=== PATIENT | female | born 1950 | race Caucasian/White ===

== ENCOUNTER 2017-08-24 10:09 | Observation (INO) ==
--- NOTE | 2017-08-24 10:43 | Emergency Department Note ---
Disposition Clinical Impression: Confusion, Facial droop, Hypokalemia Disposition: Admitted As Inpatient Condition: Fair Time of Disposition: 15:35 Altered Mental Status HPI - General Chief Complaint: ED Altered Mental Status Stated Complaint: AMS Time Seen by Provider: 08/24/17 10:16 Source: patient, family Limitations: no limitations Nursing Notes Reviewed: Yes Vital Signs Reviewed: Yes - History of Present Illness HPI Narrative: 59-year-old female presents from home with daughter bedside for evaluation of altered mentation. Onset 2 days ago. Described by her daughter as jumbled text messaging in difficulty with fine motor skill. This is waxing and waning. Daughter notes that, previously, patient has taken her 's opioid prescribed medication by accident which has caused similar symptoms or transient however they never lasted this long. PMH: Hypertension, hyperlipidemia, GERD No history of arrhythmia, CVA, TIA, coagulopathy, CAD, ACS next ROS: Positive: As above Negative: Fever, chill, nausea, vomiting, chest pain, palpitation, cough, dyspnea, diaphoresis, abdominal pain, unilateral weakness/numbness/tingling, slurring of speech, falls, trauma. - Related Data Home Medications Medication Instructions Recorded Confirmed Aspirin 81 mg PO DAILY 03/07/16 08/24/17 Atenolol [Tenormin] 50 mg PO DAILY 03/07/16 08/24/17 Omeprazole [PriLOSEC] 20 mg PO DAILY 03/07/16 08/24/17 Amitriptyline [Elavil] 50 mg PO HS 08/24/17 08/24/17 Ascorbic Acid [Vitamin C] 1,000 mg PO DAILY 08/24/17 08/24/17 Cholecalciferol (Vitamin D3) 1,000 unit PO DAILY 08/24/17 08/24/17 [Vitamin D] Loratadine [Allergy Relief] 10 mg PO DAILY 08/24/17 08/24/17 Vit/Iron Fumarate/FA 1 tab PO DAILY 08/24/17 08/24/17 [ Tablet] Topiramate [Topiramate] 50 mg PO HS 08/24/17 08/24/17 Allergies Allergy/AdvReac Type Severity Reaction Status Date / Time No Known Allergies Allergy Verified 08/24/17 10:11 All systems ED: reviewed and negative except as stated. Review of Systems: As Per HPI Past Medical History - Past Medical History Medical history: Reports: hypertension Surgical history: Reports: appendectomy, cholecystectomy, hysterectomy Psychiatric history: Reports: no psych history - Social History Smoking Status: Never smoker Smokeless Tobacco Status: No Alcohol use: Reports: none Drug use: Reports: prescription drug abuse, other Physical Exam Vital Signs Reviewed General: Patient is alert, oriented, and in no acute distress. Head: atraumatic, normocephalic Eye: normal appearance, PERRL, EOMI, no scleral icterus, no conjunctival injection ENT: mucous membranes moist, normal external ear exam Neck: normal inspection, trachea midline, full ROM Chest: normal inspection, symmetric chest rise Respiratory: Good respiratory effort. Bilateral breath sounds are clear without wheezing, crackles, or rhonchi. Cardiovascular: Regular rate and rhythm. No clicks, rubs, gallops, or murmors. Normal heart sounds. Abdomen: Bowel sounds present normoactive x-4 quadrants. Abdomen is soft, nondistended, and nontender. No guarding or rebound. Musculoskeletal: Spontaneously moving all extremities. Skin: warm, dry, intact. Neuro: Alert and oriented x4. Strength 5/5 and equal bilaterally upper and lower extremities. Sensation light touch and equal bilaterally. No limb drift , no slurring of speech. Patient does have mild droop to the right corner of her mouth with no flattening of nasolabial folds. Negative finger to nose. Psych: Patient's affect is appropriate for situation. - General Limitations: no limitations General appearance: alert, in no apparent distress Course Course Narrative: Patient reevaluated several different occasions. She continues to be awake, alert, conversive, laughing at my jokes. No focal deficits. Urinalysis does show positive for opiates however, I am no clinical suspicion of patient is opioid intoxicated based on physical exam. This is very likely sequelae from several days ago. Patient is hypokalemic to 3.1. Will provide by mouth potassium. CT head is returned showing no acute intracranial hemorrhage; I provided aspirin [address] read. I discussed the patient with on-call neurology, Dr. Pinedo, who agrees to follow the patient with admission to hospitalist for continued evaluation of possible TIA. I discussed the patient with the admitting hospitalist, Dr. Black, recent set the patient with neurology following for continued workup and evaluation for possible TIA. EKG dated 08/24/17 at 10:29 interpreted as sinus rhythm with rate of 71. Baseline artifact. ME 184, QRS 102, QTC 411. Normal axis. Nonspecific ST-T changes. Compared to previous EKG dated tinging rate 2016 show no acute ischemic changes comparison. Chest X-Ray 08/24/17 10:40 IMPRESSION: No acute cardiopulmonary disease D/ / Linwood Talley MD / Linwood Talley MD Interpreting Provider: Linwood Talley MD Head CT 08/24/17 10:42 IMPRESSION: No acute intracranial abnormality. D/ / Adam Maynard MD / Adam Maynard MD Interpreting Provider: Adam Maynard MD Vital Signs Temperature 97.8 F 08/24/17 10:11 Pulse Rate 71 08/24/17 10:11 Respiratory Rate 20 08/24/17 10:11 Blood Pressure 122/75 08/24/17 10:11 O2 Sat by Pulse Oximetry 95 08/24/17 10:11 Temperature 97.8 F 08/24/17 10:29 Pulse Rate 65 08/24/17 14:00 Respiratory Rate 18 08/24/17 14:00 Blood Pressure 112/41 08/24/17 14:00 O2 Sat by Pulse Oximetry 100 08/24/17 14:00 Oxygen Delivery Oxygen Delivery Room Air Altered Mental Status - Lab Data Result diagrams: 08/24/17 11:17 08/24/17 11:17 Lab Results 08/24/17 08/24/17 08/24/17 Range/Units 11:17 11:17 11:17 WBC 8.8 (4.3-11.1) K/mcL RBC 3.19 L (3.82-4.97) M/mcL Hgb 9.8 L (11.5-15.4) g/dL Hct 28.7 L (35.3-44.9) % MCV 90.0 (83.0-100.0) fL MCH 30.7 (28.0-33.3) pg MCHC 34.1 (31.6-35.5) g/dL RDW 14.6 H (11.5-14.5) % Plt Count 217 (140-400) K/mcL MPV 11.0 (9.4-12.4) fL Immature Gran % 0.5 (0-4) % Seg Neutrophils % 78.2 % Lymphocytes % 10.4 % Monocytes % 9.1 % Eosinophils % 1.3 % Basophils % 0.5 % Neutrophils # 6.9 (1.6-8.9) K/mcL Lymphocytes # 0.9 (0.6-4.6) K/mcL Monocytes # 0.8 (0.0-1.3) K/mcL Eosinophils # 0.1 (0.0-0.6) K/mcL Basophils # 0.0 (0.0-0.2) K/mcL PT 10.5 (9.4-12.1) Seconds INR 0.9 Sodium 135 L (136-145) mEq/L Potassium 3.1 L (3.5-5.1) mEq/L Chloride 109 H (98-107) mEq/L Carbon Dioxide 14 L (23-29) mEq/L BUN 38 H (8-23) mg/dL Creatinine 1.20 (0.60-1.20) mg/dL Est GFR ( Amer) 54 L (> 60) Est GFR (Non-Af Amer) 45 L (> 60) BUN/Creatinine Ratio 32 H (6-26) Glucose 104 (70-105) mg/dL Calculated Osmolality 289 (280-300) Calcium 8.7 (8.6-10.3) mg/dL Magnesium 2.2 (1.6-2.6) mg/dL TSH 34.171 H (0.340-5.600) mcIU/mL Thyroxine (T4) 5.06 L (5.50-11.00) mcg/dL Total T3 0.56 L (0.87-1.78) ng/mL Urine Color (Yellow) Urine Clarity (Clear) Urine pH (5.0-8.0) pH Units Ur Specific [place] (1.010-1.025) Urine Protein (Neg-Trace) mg/dL Urine Glucose (UA) (Normal) mg/dL Urine Ketones (Negative) mg/dL Urine Blood (Negative) Urine Nitrite (Negative) Urine Bilirubin (Negative) Urine Urobilinogen (Normal) mg/dL Ur Leukocyte Esterase (Negative) Urine Microscopic RBC (0-3) per hpf Urine Microscopic WBC (0-3) per hpf Ur Squamous Epith Cells (None-Few) per lpf Urine Bacteria (None-Few) per hpf Hyaline Casts (None-Few) per lpf Ur Culture Indicated? (NO) Urine Opiates Screen (Kamrhj=894) ng/mL Ur Barbiturates Screen (Pdodjy=889) ng/mL Ur Phencyclidine Scrn (Cutoff=25) ng/mL Ur Amphetamines Screen (Oamzwn=1171) ng/mL U Benzodiazepines Scrn (Ourhmi=484) ng/mL Urine Cocaine Screen (Cutoff= 300) ng/mL U Marijuana (THC) Screen (Cutoff = 50) ng/mL Ur Drug Screen Interp 08/24/17 08/24/17 Range/Units 11:28 11:28 WBC (4.3-11.1) K/mcL RBC (3.82-4.97) M/mcL Hgb (11.5-15.4) g/dL Hct (35.3-44.9) % MCV (83.0-100.0) fL MCH (28.0-33.3) pg MCHC (31.6-35.5) g/dL RDW (11.5-14.5) % Plt Count (140-400) K/mcL MPV (9.4-12.4) fL Immature Gran % (0-4) % Seg Neutrophils % % Lymphocytes % % Monocytes % % Eosinophils % % Basophils % % Neutrophils # (1.6-8.9) K/mcL Lymphocytes # (0.6-4.6) K/mcL Monocytes # (0.0-1.3) K/mcL Eosinophils # (0.0-0.6) K/mcL Basophils # (0.0-0.2) K/mcL PT (9.4-12.1) Seconds INR Sodium (136-145) mEq/L Potassium (3.5-5.1) mEq/L Chloride (98-107) mEq/L Carbon Dioxide (23-29) mEq/L BUN (8-23) mg/dL Creatinine (0.60-1.20) mg/dL Est GFR ( Amer) (> 60) Est GFR (Non-Af Amer) (> 60) BUN/Creatinine Ratio (6-26) Glucose (70-105) mg/dL Calculated Osmolality (280-300) Calcium (8.6-10.3) mg/dL Magnesium (1.6-2.6) mg/dL TSH (0.340-5.600) mcIU/mL Thyroxine (T4) (5.50-11.00) mcg/dL Total T3 (0.87-1.78) ng/mL Urine Color Yellow (Yellow) Urine Clarity Clear (Clear) Urine pH 6.0 (5.0-8.0) pH Units Ur Specific [place] 1.022 (1.010-1.025) Urine Protein 100 H (Neg-Trace) mg/dL Urine Glucose (UA) Normal (Normal) mg/dL Urine Ketones 15 H (Negative) mg/dL Urine Blood Small H (Negative) Urine Nitrite Negative (Negative) Urine Bilirubin Small H (Negative) Urine Urobilinogen Normal (Normal) mg/dL Ur Leukocyte Esterase Moderate H (Negative) Urine Microscopic RBC 0-3 (0-3) per hpf Urine Microscopic WBC 15-30 H (0-3) per hpf Ur Squamous Epith Cells Many H (None-Few) per lpf Urine Bacteria None Seen (None-Few) per hpf Hyaline Casts None Seen (None-Few) per lpf Ur Culture Indicated? NO. A (NO) Urine Opiates Screen Positive H (Dtdrdz=088) ng/mL Ur Barbiturates Screen Negative (Rkkqtm=687) ng/mL Ur Phencyclidine Scrn Negative (Cutoff=25) ng/mL Ur Amphetamines Screen Negative (Bohpmy=9508) ng/mL U Benzodiazepines Scrn Negative (Wncthj=300) ng/mL Urine Cocaine Screen Negative (Cutoff= 300) ng/mL U Marijuana (THC) Screen Negative (Cutoff = 50) ng/mL Ur Drug Screen Interp See Below TPA Checklist - Eligibilty for IV tPA 1. LKW equal to or less than 4.5 hours be before treatment: No - LKW: 3-4.5 hrs Add. Warnings/Precautions Patient/family understanding: The patient/family members have been counseled and understood the risk, benefit , and alternatives of treatment. NIH Stroke Scale - Level of Consciousness LOC: Alert - LOC Questions LOC Questions: Answers both correctly - LOC Commands LOC Commands: Performs both correctly - Best Gaze Best Gaze: Normal - Visual Visual: No visual loss - Facial Palsy Facial Palsy: Minor asymmetry on smiling, flattened nasolabial fold - Motor Arms Motor Arm-Left: No drift for 10 seconds Motor Arm-Right: No drift for 10 seconds - Motor Legs Motor Leg-Left: No drift for 5 seconds Motor Leg-Right: No drift for 5 seconds - Limb Ataxia Limb Ataxia: Absent of affected limb too weak to perform exam - Sensory Sensory: Normal - Best Language Best Language: No aphasia - Dysarthria Dysarthria: Normal - Extinction and Inattention Extinction and Inattention: Normal - NIHSS Total Score NIHSS Total Score: 1
--- NOTE | 2017-08-24 11:30 | Emergency Department Note ---
Disposition Clinical Impression: Confusion, Facial droop, Hypokalemia Disposition: Admitted As Inpatient Condition: Fair General Adult HPI - General Chief complaint: ED Altered Mental Status Stated complaint: AMS Time Seen by Provider: 08/24/17 10:16 Source: patient, family Limitations: no limitations - History of Present Illness Pain Scale: 10 - Related Data Home Medications Medication Instructions Recorded Confirmed Aspirin 81 mg PO DAILY 03/07/16 08/24/17 Atenolol [Tenormin] 50 mg PO DAILY 03/07/16 08/24/17 Omeprazole [PriLOSEC] 20 mg PO DAILY 03/07/16 08/24/17 Amitriptyline [Elavil] 50 mg PO HS 08/24/17 08/24/17 Ascorbic Acid [Vitamin C] 1,000 mg PO DAILY 08/24/17 08/24/17 Cholecalciferol (Vitamin D3) 1,000 unit PO DAILY 08/24/17 08/24/17 [Vitamin D] Loratadine [Allergy Relief] 10 mg PO DAILY 08/24/17 08/24/17 Vit/Iron Fumarate/FA 1 tab PO DAILY 08/24/17 08/24/17 [ Tablet] Topiramate [Topiramate] 50 mg PO HS 08/24/17 08/24/17 Allergies Allergy/AdvReac Type Severity Reaction Status Date / Time No Known Allergies Allergy Verified 08/24/17 10:11 Past Medical History - Past Medical History Medical history: Reports: hypertension Surgical history: Reports: appendectomy, cholecystectomy, hysterectomy Psychiatric history: Reports: no psych history - Social History Smoking Status: Never smoker Smokeless Tobacco Status: No Alcohol use: Reports: none Drug use: Reports: prescription drug abuse, other Physical Exam - General Limitations: no limitations General appearance: alert, in no apparent distress Course Vital Signs Temperature 97.8 F 08/24/17 10:11 Pulse Rate 71 08/24/17 10:11 Respiratory Rate 20 08/24/17 10:11 Blood Pressure 122/75 08/24/17 10:11 O2 Sat by Pulse Oximetry 95 08/24/17 10:11 Temperature 97.8 F 08/24/17 10:29 Pulse Rate 65 08/24/17 14:00 Respiratory Rate 20 08/24/17 15:34 Blood Pressure 91/37 08/24/17 15:34 O2 Sat by Pulse Oximetry 100 08/24/17 14:00 Oxygen Delivery Oxygen Delivery Room Air Medical Decision Making - Lab Data Result diagrams: 08/24/17 11:17 08/24/17 11:17 Lab Results 08/24/17 08/24/17 08/24/17 Range/Units 11:17 11:17 11:17 WBC 8.8 (4.3-11.1) K/mcL RBC 3.19 L (3.82-4.97) M/mcL Hgb 9.8 L (11.5-15.4) g/dL Hct 28.7 L (35.3-44.9) % MCV 90.0 (83.0-100.0) fL MCH 30.7 (28.0-33.3) pg MCHC 34.1 (31.6-35.5) g/dL RDW 14.6 H (11.5-14.5) % Plt Count 217 (140-400) K/mcL MPV 11.0 (9.4-12.4) fL Immature Gran % 0.5 (0-4) % Seg Neutrophils % 78.2 % Lymphocytes % 10.4 % Monocytes % 9.1 % Eosinophils % 1.3 % Basophils % 0.5 % Neutrophils # 6.9 (1.6-8.9) K/mcL Lymphocytes # 0.9 (0.6-4.6) K/mcL Monocytes # 0.8 (0.0-1.3) K/mcL Eosinophils # 0.1 (0.0-0.6) K/mcL Basophils # 0.0 (0.0-0.2) K/mcL PT 10.5 (9.4-12.1) Seconds INR 0.9 Sodium 135 L (136-145) mEq/L Potassium 3.1 L (3.5-5.1) mEq/L Chloride 109 H (98-107) mEq/L Carbon Dioxide 14 L (23-29) mEq/L BUN 38 H (8-23) mg/dL Creatinine 1.20 (0.60-1.20) mg/dL Est GFR ( Amer) 54 L (> 60) Est GFR (Non-Af Amer) 45 L (> 60) BUN/Creatinine Ratio 32 H (6-26) Glucose 104 (70-105) mg/dL Calculated Osmolality 289 (280-300) Calcium 8.7 (8.6-10.3) mg/dL Magnesium 2.2 (1.6-2.6) mg/dL TSH 34.171 H (0.340-5.600) mcIU/mL Thyroxine (T4) 5.06 L (5.50-11.00) mcg/dL Total T3 0.56 L (0.87-1.78) ng/mL Urine Color (Yellow) Urine Clarity (Clear) Urine pH (5.0-8.0) pH Units Ur Specific [place] (1.010-1.025) Urine Protein (Neg-Trace) mg/dL Urine Glucose (UA) (Normal) mg/dL Urine Ketones (Negative) mg/dL Urine Blood (Negative) Urine Nitrite (Negative) Urine Bilirubin (Negative) Urine Urobilinogen (Normal) mg/dL Ur Leukocyte Esterase (Negative) Urine Microscopic RBC (0-3) per hpf Urine Microscopic WBC (0-3) per hpf Ur Squamous Epith Cells (None-Few) per lpf Urine Bacteria (None-Few) per hpf Hyaline Casts (None-Few) per lpf Ur Culture Indicated? (NO) Urine Opiates Screen (Plnlzy=339) ng/mL Ur Barbiturates Screen (Fhdtsx=053) ng/mL Ur Phencyclidine Scrn (Cutoff=25) ng/mL Ur Amphetamines Screen (Oobpen=0819) ng/mL U Benzodiazepines Scrn (Enibnf=383) ng/mL Urine Cocaine Screen (Cutoff= 300) ng/mL U Marijuana (THC) Screen (Cutoff = 50) ng/mL Ur Drug Screen Interp 08/24/17 08/24/17 Range/Units 11:28 11:28 WBC (4.3-11.1) K/mcL RBC (3.82-4.97) M/mcL Hgb (11.5-15.4) g/dL Hct (35.3-44.9) % MCV (83.0-100.0) fL MCH (28.0-33.3) pg MCHC (31.6-35.5) g/dL RDW (11.5-14.5) % Plt Count (140-400) K/mcL MPV (9.4-12.4) fL Immature Gran % (0-4) % Seg Neutrophils % % Lymphocytes % % Monocytes % % Eosinophils % % Basophils % % Neutrophils # (1.6-8.9) K/mcL Lymphocytes # (0.6-4.6) K/mcL Monocytes # (0.0-1.3) K/mcL Eosinophils # (0.0-0.6) K/mcL Basophils # (0.0-0.2) K/mcL PT (9.4-12.1) Seconds INR Sodium (136-145) mEq/L Potassium (3.5-5.1) mEq/L Chloride (98-107) mEq/L Carbon Dioxide (23-29) mEq/L BUN (8-23) mg/dL Creatinine (0.60-1.20) mg/dL Est GFR ( Amer) (> 60) Est GFR (Non-Af Amer) (> 60) BUN/Creatinine Ratio (6-26) Glucose (70-105) mg/dL Calculated Osmolality (280-300) Calcium (8.6-10.3) mg/dL Magnesium (1.6-2.6) mg/dL TSH (0.340-5.600) mcIU/mL Thyroxine (T4) (5.50-11.00) mcg/dL Total T3 (0.87-1.78) ng/mL Urine Color Yellow (Yellow) Urine Clarity Clear (Clear) Urine pH 6.0 (5.0-8.0) pH Units Ur Specific [place] 1.022 (1.010-1.025) Urine Protein 100 H (Neg-Trace) mg/dL Urine Glucose (UA) Normal (Normal) mg/dL Urine Ketones 15 H (Negative) mg/dL Urine Blood Small H (Negative) Urine Nitrite Negative (Negative) Urine Bilirubin Small H (Negative) Urine Urobilinogen Normal (Normal) mg/dL Ur Leukocyte Esterase Moderate H (Negative) Urine Microscopic RBC 0-3 (0-3) per hpf Urine Microscopic WBC 15-30 H (0-3) per hpf Ur Squamous Epith Cells Many H (None-Few) per lpf Urine Bacteria None Seen (None-Few) per hpf Hyaline Casts None Seen (None-Few) per lpf Ur Culture Indicated? NO. A (NO) Urine Opiates Screen Positive H (Fhzuzd=147) ng/mL Ur Barbiturates Screen Negative (Xkicvd=565) ng/mL Ur Phencyclidine Scrn Negative (Cutoff=25) ng/mL Ur Amphetamines Screen Negative (Tuzbwg=1843) ng/mL U Benzodiazepines Scrn Negative (Vzetym=007) ng/mL Urine Cocaine Screen Negative (Cutoff= 300) ng/mL U Marijuana (THC) Screen Negative (Cutoff = 50) ng/mL Ur Drug Screen Interp See Below Attestation Statement - Attestation Attestation: I examined this patient and my medical decision-making was reviewed with the [employer] PERSON/PA/Advanced Practice Nurse/Resident Physician. I agree with the documented findings, disposition and treatment plan as described except to the extent set forth below. The patient has confusion. Last several days, the daughter feels that her speech is thick, the patient has only been confused in the past and she has incorrectly taking medication and the daughter does keep these under close supervision but still feels that this is possible so the patient is being evaluated further with lab testing, head CT as well as urine toxicology testing to make sure she has not taking her 's medication, urine testing will also be done. Patient does know the day, month and year and name of the hospital but daughter feels that she is slower to respond than usual at this time however symptoms have improved over the last 24 hours. Concern for TIA versus inappropriate medication administration as well as concern for possible left foot abnormality or urinary tract infection. Results pending. [id number]
[2017-08-24 11:38] LABS: Bilirubin,Urine Small (Negative); Blood,Urine Small (Negative); Clarity,Urine Clear (Clear); Color,Urine Yellow (Yellow); Glucose,Urine (UA) Normal (Normal); Ketones,Urine 15 mg/dL (Negative); Leukocyte Esterase,Urine Moderate (Negative); Nitrite,Urine Negative (Negative); Protein,Urine 100 mg/dL (Neg-Trace); Specific Gravity,Urine 1.022 (1.010-1.025); Urobilinogen,Urine Normal (Normal)
[2017-08-24 11:40] LABS: Bacteria,Urine None Seen per hpf (None-Few); Hyaline Casts,Urine None Seen per lpf (None-Few); RBC,Urine 0-3 per hpf (0-3); Squamous Epithelial Cell,Urine Many per lpf (None-Few); WBC,Urine 15-30 per hpf (0-3)
[2017-08-24 11:47] LABS: Amphetamine Screen,Urine Negative ng/mL (Cutoff=1000); Barbiturate Screen,Urine Negative ng/mL (Cutoff=200); Benzodiazepines Screen,Urine Negative ng/mL (Cutoff=200); Cannabinoid Screen,Urine Negative ng/mL (Cutoff = 50); Cocaine Screen,Urine Negative ng/mL (Cutoff= 300); Opiate Screen,Urine Positive ng/mL (Cutoff=300); Phencyclidine Screen,Urine Negative ng/mL (Cutoff=25)
[2017-08-24 12:08] LABS: Calcium 8.7 mg/dL (8.6-10.3); Potassium 3.1 mEq/L (3.5-5.1)
[2017-08-24] MEDS ORDERED: Aspirin 81 MG TAB.CHEW PO ONE (12:38)
[2017-08-24 13:22] LABS: Hematocrit 28.7 % (35.3-44.9); Hemoglobin 9.8 g/dL (11.5-15.4); Immature Granulocytes % 0.5 % (0-4); Lymphocytes % 10.4 %; Mean Corpuscular HGB Conc 34.1 g/dL (31.6-35.5); Mean Corpuscular Hemoglobin 30.7 pg (28.0-33.3); Platelet Count 217 K/mcL (140-400); Red Blood Count 3.19 M/mcL (3.82-4.97); Red Cell Distribution Width 14.6 % (11.5-14.5); Segmented Neutrophils % 78.2 %
[2017-08-24 13:23] LABS: Basophils % 0.5 %; Eosinophils # 0.1 K/mcL (0.0-0.6); Eosinophils % 1.3 %; Lymphocytes # 0.9 K/mcL (0.6-4.6); Monocytes # 0.8 K/mcL (0.0-1.3); Monocytes % 9.1 %; Neutrophils # 6.9 K/mcL (1.6-8.9)
--- NOTE | 2017-08-24 13:26 | Event Note ---
Date of Encounter: 08/24/17 Time of Encounter: 13:25 Patient was seen and examined. I agree with the H&P as written by Parul Su NP. Briefly, patient is a 59-year-old female with history of hypertension, hypotension, hypothyroidism who presented with 2 days worth of confusion and lethargy. There was a report of that also some fine motor function. The patient has no focal deficits on my examination. CT head was negative in the ED. The patient apparently has taken a dose of her 's oral morphine accidently. Her urine drug screen was positive for opiates. Family confirms that this was done by mistake. Labs showed mild BENJI and hypokalmia of 3.1. GEN: NAD, alert oriented 3 CVS: RRR. S1, S2, No m/r/g RESP: CTAB ABD: Soft, NT, ND, +BS EXT: No edema. 2+ DP. No rashes NEURO: Nonfocal Admit to hospitalist for transient confusion Effusions possibly metabolic versus medications We will rule out a CVA but unlikely. Check MRI brain and carotids ultrasound. IV fluids for mild BENJI Replete potassium Check TSH. Patient had a thyroid ablation back in February 2017 No need for neurology consult for now. Resume home meds. DVT prophylaxis
[2017-08-24 13:35] LABS: INR 0.9; Prothrombin Time 10.5 Seconds (9.4-12.1)
[2017-08-24] MEDS ORDERED: Naloxone 0.4 MG/ML INJ IVP PRN (13:35)
[2017-08-24 13:36] LABS: Magnesium 2.2 mg/dL (1.6-2.6)
[2017-08-24 13:44] LABS: Thyroid Stimulating Hormone 34.171 mcIU/mL (0.340-5.600)
[2017-08-24] MEDS: 0.9 % Sodium Chloride 1,000 ML IVC SCH ×2 (13:56→21:13)
--- NOTE | 2017-08-24 14:04 | Internal Med History&Physical ---
Date of Encounter: 08/24/17 Time of Encounter: 13:51 Internal Medicine - H&P: HPI Chief complaint: Confusion and lethargy Admitted From: Home Plans for Post Hospital Care: Home History of present illness: Ms. Dickens is a 67 year old female with history of HTN, HLD, and thyroid issues in past. Urine was + for opiates. The patient indicated that she has taken her husbands morphine 30 mg in the past on accident and wonders if this is the cause of her confusion and lethargy for the past 2 days. The patient is alert and oriented. No focal deficits noted during exam. The patient falls asleep while asking her questions, but awakens with appropriate answers. The family did ask for a social service consult regarding finding a pharmacy service that offers blister packs, to help the patient avoid confusion with medication administration with her , who she cares for. Ct of the head showed no acute abnormality. Will get MRI of head/brain, carotid US, ECHO with bubble study, NIHSS, neuro checks, and continue ASA daily. The patient's k was 3.1, will replace with oral supplementation. Na is 135, will continue IVF's. The patient TSH was elevated., will get T3, and T4. The patient had a thyroid ablation in 12/[address] Mejia. Past Med Surg Social Fam HX - Past Medical History Medical history: hypertension Additional medical history: hyperthyroidism Psychiatric history: no psych history - Past Surgical History Surgical History: appendectomy, cholecystectomy, hysterectomy Additional surgical history: back surgery and gastric bypass - Social History Smoking Status: Never smoker Smokeless Tobacco Status: No Alcohol use: none Drug use: prescription drug abuse, other - Family History Mother Living Status: Father Living Status: Internal Medicine - H&P: Meds Aspirin 81 mg PO DAILY 03/07/16 [History] Atenolol [Tenormin] 50 mg PO DAILY 03/07/16 [History] Omeprazole [PriLOSEC] 20 mg PO DAILY 03/07/16 [History] Amitriptyline [Elavil] 50 mg PO HS 08/24/17 [History] Ascorbic Acid [Vitamin C] 1,000 mg PO DAILY 08/24/17 [History] Cholecalciferol (Vitamin D3) [Vitamin D] 1,000 unit PO DAILY 08/24/17 [History] Loratadine [Allergy Relief] 10 mg PO DAILY 08/24/17 [History] Vit/Iron Fumarate/FA [ Tablet] 1 tab PO DAILY 08/24/17 [History ] Topiramate [Topiramate] 50 mg PO HS 08/24/17 [History] 3 Allergy/AdvReac Type Severity Reaction Status Date / Time No Known Allergies Allergy Verified 08/24/17 10:11 All Systems PM: A 10-system review of systems was performed and is negative for pertinent findings except as documented above in the HPI. - Constitutional Constitutional: no chills, no fever(s), no night sweats - EENT Eyes: no change in vision, no discharge, no pain, no photophobia Ears: no ear discharge, no ear pain, no tinnitus Nose, mouth and throat: no dysphagia, no nasal discharge, no neck pain, no sore throat - Cardiovascular Cardiovascular ROS IM: no chest pain, no diaphoresis, no dyspnea, no lightheadedness, no palpitations, no syncope - Respiratory Respiratory: no cough, no dyspnea, no wheezing, no excessive phlegm production - Gastrointestinal Gastrointestinal: no abdominal pain, no diarrhea, no hematemesis, no hematochezia, no melena, no nausea, no vomiting - Genitourinary Genitourinary: no change in urinary stream, no dysuria, no flank pain, no hematuria - Musculoskeletal Musculoskeletal ROS IM: no numbness, no tingling - Integumentary Integumentary IM: no rash, no unusual bruising - Neurological Neurological ROS: no confusion, no convulsions, no focal weakness, no numbness, no tingling, no tremor(s) - Hematologic/Lymphatic Hematologic/Lymphatic: no easy bruising - Constitutional Vitals: Temp Pulse Resp BP Pulse Ox 97.8 F 69 18 106/59 96 08/24/17 10:29 08/24/17 10:45 08/24/17 10:45 08/24/17 10:45 08/24/17 10:45 General appearance: Present: A&O X 3, answers questions appropriately - Head Head exam: Present: atraumatic, normocephalic - Eye Eye exam: Present: PERRL, conjuntiva pink, sclera anicteric Pupils: Present: PERRL - Neck Neck exam general surgery: Present: supple, trachea midline. Absent: lymphadenopathy - Respiratory Respiratory exam: Present: CTAB. Absent: accessory muscle use, rales, rhonchi, wheezes - Cardiovascular Cardiovascular exam: Present: RRR, +S1, +S2. Absent: diastolic murmur, gallop, rubs, systolic murmur - GI/Abdominal GI/Abdominal exam: Present: normal bowel sounds, soft, tenderness (with palpation, to left hip/left groin area), no peritoneal signs. Absent: distended - Extremities Exam Extremities exam: Present: warm, radial pulses palpable and symmetrical. Absent : calf tenderness, cyanotic, pedal edema - Neurological Exam Neurological exam: Present: CN II-XII intact, oriented X3, no focal deficits. Absent: pronater drift, facial droop, speech deficit - Skin Skin exam: Present: dry, intact Internal Med - H&P Results - Labs CBC & Chem 7: 08/24/17 11:17 08/24/17 11:17 Labs: Short CBC 08/24/17 Range/Units 11:17 WBC 8.8 (4.3-11.1) K/mcL Hgb 9.8 L (11.5-15.4) g/dL Hct 28.7 L (35.3-44.9) % Plt Count 217 (140-400) K/mcL Neutrophils # 6.9 (1.6-8.9) K/mcL BMP 08/24/17 11:17 Sodium 135 L Potassium 3.1 L Chloride 109 H Carbon Dioxide 14 L BUN 38 H Creatinine 1.20 Glucose 104 Calcium 8.7 Urine 08/24/17 Range/Units 11:28 Urine Color Yellow (Yellow) Urine Clarity Clear (Clear) Urine pH 6.0 (5.0-8.0) pH Units Ur Specific [place] 1.022 (1.010-1.025) Urine Protein 100 H (Neg-Trace) mg/dL Urine Glucose (UA) Normal (Normal) mg/dL - Impressions ITS Impressions Chest X-Ray 08/24/17 10:40 IMPRESSION: No acute cardiopulmonary disease D/ / Linwood Talley MD / Linwood Talley MD Interpreting Provider: Linwood Talley MD Head CT 08/24/17 10:42 IMPRESSION: No acute intracranial abnormality. D/ / Adam Maynard MD / Adam Maynard MD Interpreting Provider: Adam Maynard MD - Assessment and plan (1) Altered mental status Current Visit: Yes Status: Acute Assessment and plan: Patient thinks she may have inadvertently taken her husbands morhphine 30 mg tablets, in the past day or 2, this could be the cause of her confusion. Will work up patient for stroke. NIHSS Neuro checks qshift Ct of head negative for acute abnormality, will get MRI head/brain Caroitid US Echo cardiogram with bubble study Monitor daily labs Cardiac monitoring Qualifiers: Altered mental status type: unspecified Qualified Code(s): R41.82 - Altered mental status, unspecified (2) Hypokalemia Current Visit: Yes Status: Acute Assessment and plan: Likely due to dehydration, will replace with potassium chloride 40 meq X1 Check serum k in am. Cardiac monitoring (3) Dehydration Current Visit: Yes Status: Acute Assessment and plan: Monitor daily labs Continue IVF's (4) Hyponatremia Current Visit: Yes Status: Acute (5) Elevated TSH Current Visit: Yes Status: Acute Assessment and plan: Patient TSH is 34.171 today. She was found to have thyroid nodules which represented goiters, late last year. In 12/2016 she underwent a thyroid ablation. T3 and T4 ordered at this time. The highest TSH documented in the past was 0.741 (6) HTN (hypertension) Current Visit: Yes Status: Acute Assessment and plan: Bp is controlled Continue home medications-Atenolol Qualifiers: Hypertension type: essential hypertension Qualified Code(s): I10 - Essential (primary) hypertension - Time Spent With Patient Total time spent is greater than 50% in coordination of care (as documented) at patient's floor/unit and/or counseling patient:
[2017-08-24 14:48] LABS: Triiodothyronine (T3) Total 0.56 ng/mL (0.87-1.78)
[2017-08-24] MEDS ORDERED: Acetaminophen 325 MG TABLET PO PRN (16:39)
[2017-08-24] MEDS ORDERED: *HR* HYDROcodone/Acet 5/325 mg TABLET PO PRN (16:41)
[2017-08-24] MEDS ORDERED: Topiramate 25 MG TABLET PO SCH (21:00)
[2017-08-24] MEDS: *HR* Heparin 5,000 UNIT/ML VIAL SQ SCH (21:13)
[2017-08-25 01:48] LABS: Basophils % 0.5 %; Eosinophils # 0.1 K/mcL (0.0-0.6); Hematocrit 26.6 % (35.3-44.9); Hemoglobin 8.9 g/dL (11.5-15.4); Immature Granulocytes % 0.3 % (0-4); Lymphocytes # 1.2 K/mcL (0.6-4.6); Lymphocytes % 19.3 %; Mean Corpuscular HGB Conc 33.5 g/dL (31.6-35.5); Mean Corpuscular Hemoglobin 30.4 pg (28.0-33.3); Mean Corpuscular Volume 90.8 fL (83.0-100.0); Mean Platelet Volume 10.5 fL (9.4-12.4); Monocytes # 0.6 K/mcL (0.0-1.3); Monocytes % 10.3 %; Neutrophils # 4.1 K/mcL (1.6-8.9); Platelet Count 183 K/mcL (140-400); Red Blood Count 2.93 M/mcL (3.82-4.97); Red Cell Distribution Width 15.1 % (11.5-14.5); Segmented Neutrophils % 67.6 %
[2017-08-25 02:06] LABS: BUN/Creatinine Ratio 33 (6-26); Blood Urea Nitrogen 29 mg/dL (8-23); Carbon Dioxide 11 mEq/L (23-29); Chloride 116 mEq/L (98-107); Chol/HDL Ratio 2.8 (0-4.9); Cholesterol 118 mg/dL (< 200); Glucose 72 mg/dL (70-105); HDL Cholesterol 42 mg/dL (40-59); LDL Cholesterol,Calculated 48 mg/dL (0-99); Osmolality,Calculated 292 (280-300); Potassium 3.1 mEq/L (3.5-5.1); Sodium 139 mEq/L (136-145); Triglycerides 139 mg/dL (< 150); eGFR For African Americans > 60 (> 60); eGFR For Non-African Americans > 60 (> 60)
[2017-08-25] MEDS: *HR* Heparin 5,000 UNIT/ML VIAL SQ SCH (05:58)
[2017-08-25] MEDS ORDERED: Aspirin 81 MG TAB.CHEW PO SCH (09:00)
[2017-08-25] MEDS ORDERED: Prenatal Vit/FA 1 EACH TABLET PO SCH (09:00)
[2017-08-25] MEDS ORDERED: Ascorbic Acid 500 MG TABLET PO SCH (09:00)
[2017-08-25] MEDS ORDERED: Loratadine 10 MG TABLET PO SCH (09:00)
[2017-08-25] MEDS ORDERED: Cholecalciferol (D-3) 1,000 UNIT TABLET PO SCH (09:00)
[2017-08-25] MEDS ORDERED: Aspirin 325 MG TABLET PO SCH (09:00)
--- NOTE | 2017-08-25 10:04 | Internal Med Progress Note ---
Date of Encounter: 08/25/17 - Assessment and plan (1) Hypothyroid Current Visit: Yes Status: Acute (2) Accidental drug ingestion Current Visit: Yes Status: Acute (3) Altered mental status Current Visit: Yes Status: Acute Qualifiers: Altered mental status type: unspecified Qualified Code(s): R41.82 - Altered mental status, unspecified (4) Confusion Current Visit: Yes Status: Acute (5) Elevated TSH Current Visit: Yes Status: Acute (6) H/O thyroid nodule Current Visit: Yes Status: Acute (7) HTN (hypertension) Current Visit: Yes Status: Acute Qualifiers: Hypertension type: essential hypertension Qualified Code(s): I10 - Essential (primary) hypertension (8) Hypokalemia Current Visit: Yes Status: Acute (9) Hyponatremia Current Visit: Yes Status: Acute - Time Spent With Patient Total time spent is greater than 50% in coordination of care (as documented) at patient's floor/unit and/or counseling patient: - Constitutional Vitals: Temp Pulse Resp BP Pulse Ox 97.9 F 70 20 91/57 100 08/25/17 06:49 08/25/17 06:49 08/25/17 06:49 08/25/17 06:49 08/25/17 06:49 General appearance: Present: A&O X 3, answers questions appropriately Internal Medicine: Result - Labs CBC & Chem 7: 08/25/17 01:15 08/25/17 01:15 Labs: Short CBC 08/25/17 Range/Units 01:15 WBC 6.1 (4.3-11.1) K/mcL Hgb 8.9 L (11.5-15.4) g/dL Hct 26.6 L (35.3-44.9) % Plt Count 183 (140-400) K/mcL Neutrophils # 4.1 (1.6-8.9) K/mcL BMP 08/25/17 01:15 Sodium 139 Potassium 3.1 L Chloride 116 H Carbon Dioxide 11 L BUN 29 H Creatinine 0.89 Glucose 72 Calcium 8.0 L - ABG Interpretation ABG results: PT/INR, D-dimer PT 10.5 Seconds (9.4-12.1) 08/24/17 11:17 Consult Discharge Plan - Plan Referrals: Russell Wan MD [Primary Care Provider] -
--- NOTE | 2017-08-25 14:19 | Discharge Summary ---
- NOTES TO OUTPATIENT PROVIDER Notes to Outpatient Provider: Patient presented with altered mental status, thought to be caused by accidental ingestion of 's by mouth morphine. UDS positive for opiates. Neurological workup unremarkable. However patient was found to have severe carotid stenosis the left carotid artery. Also, patient was found to have hypothyroidism. History of thyroid nodules. Thyroid US completed while inpatient. SEE results Date of Encounter: 08/25/17 Time of Encounter: 14:06 - Discharge Diagnosis (1) Accidental drug ingestion Priority: Primary Status: Acute Assessment and Plan: Accidental ingestion of 's 30 mg morphine tablets Patient states that this happened on one additional medication in the past Presented with altered mental status and lethargy Noted to have sevre left carotid artery stenosis. Otherwise normal stroke workup Has returned to baseline mental status Qualifiers: Encounter type: initial encounter Qualified Code(s): T50.901A - Poisoning by unspecified drugs, medicaments and biological substances, accidental ( unintentional), initial encounter (2) Hypothyroid Priority: Secondary Status: Acute Assessment and Plan: History of thyroid nodules 01/11/17 right and left thyroid nodule FNA biopsy completed consistent with hyperplastic nodules both benign TSH 34.171 on admission, free T4-5 0.06 and total T3 0.56 Started on levothyroxine 75 g daily Instructed to follow up with asian studies professor and primary care provider for further evaluation Qualifiers: Hypothyroidism type: unspecified Qualified Code(s): E03.9 - Hypothyroidism , unspecified (3) Altered mental status Priority: Secondary Status: Acute Assessment and Plan: secondary to accidental drug ingestion see above Qualifiers: Altered mental status type: unspecified Qualified Code(s): R41.82 - Altered mental status, unspecified (4) Confusion Priority: Secondary Status: Acute Assessment and Plan: resolved 2/2 accidental ingestion of husbands morphine states " i set up our pills and I think i may have gotten them confused" this is the second time this has happened set up home health with nurse aid, for assistance with pill box (5) Elevated TSH Priority: Secondary Status: Acute (6) H/O thyroid nodule Priority: Secondary Status: Acute Assessment and Plan: h/o thyroid nodule presents with confusion and lethargy was found to be hypothyroid on admission synthroid started at 75mcg daily thyroid US completed- PCP to f/u results f/u with asian studies professor 1-2 weeks after d/c patient reports that she already has a f/u appt in september (7) HTN (hypertension) Priority: Secondary Status: Acute Assessment and Plan: h/o HTN, BP stable, cont anti-HTN meds at d/c Qualifiers: Hypertension type: essential hypertension Qualified Code(s): I10 - Essential (primary) hypertension (8) Dehydration Priority: Secondary Status: Acute Assessment and Plan: poor oral intake over the last 48 hours, with confusion and AMS, 2/2 drug ingestion (9) Hypokalemia Priority: Secondary Status: Acute Assessment and Plan: hypokalemia, likely 2/2 dehydration replete potassium (10) Hyponatremia Priority: Secondary Status: Acute Assessment and Plan: etiology unclear, resolved Hospital course: Ms. Dickens is a 67 year old female with history of HTN, HLD, and thyroid nodules. Urine was + for opiates. The patient indicates that she may have had an accidental ingestion of her 's 30 mg morphine tablets. She reports that this occurred on one prior occasion. She is responsible for filling her pill boxes and believes she may have cut them confused in the process. When she presented she was confused with some lethargy however this is since subsided. Neurological examination was found to be grossly unremarkable however , she was found to have left severe carotid artery stenosis. I do not believe however this was contributing to her current signs or symptoms. Additionally, the patient was found to have hypothyroidism with an elevated TSH, and T4. Known history of thyroid nodules which were benign. When in follow-up in the outpatient setting. media services coordinator consult to help set up home health services with nursing home physician to help the patient avoid confusion with medication administration. Patient is instructed to follow up with PCP within 1 week of discharge. Additionally, she has a follow-up with her asian studies professor coming up in September. She is instructed cases appointment. Also, daughter is at bedside and has agreed to go home and help assist the patient with setting up her medications following discharge. Uneventful hospital course, back to baseline at discharge. Verbalized understanding, denies any further questions at this time. Discharge discussed with: patient, family, nurse, social work - Time Spent with Patient Total time spent providing and/or coordinating discharge services: Less than 30 minutes - Discharge Medications Prescriptions: Levothyroxine [Synthroid] 75 mcg PO DAILY@0630 30 Days #30 tablet Home Medications: Aspirin 81 mg PO DAILY 03/07/16 [History] Atenolol [Tenormin] 50 mg PO DAILY 03/07/16 [History] Omeprazole [PriLOSEC] 20 mg PO DAILY 03/07/16 [History] Amitriptyline [Elavil] 50 mg PO HS 08/24/17 [History] Ascorbic Acid [Vitamin C] 1,000 mg PO DAILY 08/24/17 [History] Cholecalciferol (Vitamin D3) [Vitamin D3] 1,000 unit PO DAILY 08/24/17 [History] Loratadine [Allergy Relief] 10 mg PO DAILY 08/24/17 [History] Vit/Iron Fumarate/FA [ Tablet] 1 tab PO DAILY 08/24/17 [History ] Topiramate 50 mg PO HS 08/24/17 [History] Levothyroxine [Synthroid] 75 mcg PO DAILY@629 30 Days #30 tablet 08/25/17 [Rx] Allergies/Adverse Reactions: 3 Allergy/AdvReac Type Severity Reaction Status Date / Time No Known Allergies Allergy Verified 08/24/17 10:11 Date of admission: 08/24/17 14:40 Primary care physician: Russell Wna, Discharging clinician: Abhishek Zabala Anticipated date of discharge: 08/25/17 - Constitutional Vitals: Temp Pulse Resp BP Pulse Ox 98.0 F 76 20 112/71 100 08/25/17 11:24 08/25/17 11:24 08/25/17 11:24 08/25/17 11:24 08/25/17 11:24 General appearance: Present: A&O X 3, answers questions appropriately - Head Head exam: Present: atraumatic, normocephalic - Eye Eye exam: Present: EOMI, PERRL, conjuntiva pink, sclera anicteric Pupils: Present: PERRL - Neck Neck exam general surgery: Present: supple, trachea midline. Absent: lymphadenopathy - Respiratory Respiratory exam: Present: CTAB. Absent: accessory muscle use, rales, rhonchi, wheezes - Cardiovascular Cardiovascular exam: Present: RRR, +S1, +S2. Absent: diastolic murmur, gallop, rubs, systolic murmur - GI/Abdominal GI/Abdominal exam: Present: normal bowel sounds, soft, no peritoneal signs. Absent: distended, tenderness - Extremities Exam Extremities exam: Present: warm, radial pulses palpable and symmetrical. Absent : calf tenderness, cyanotic, pedal edema - Neurological Exam Neurological exam: Present: CN II-XII intact, oriented X3, no focal deficits. Absent: pronater drift, facial droop, speech deficit - Skin Skin exam: Present: dry, intact - Patient Status Disposition: Home, Self-Care Condition: Good Functional capacity at discharge: uses cane/walker Overall status at discharge: patient is progressing back to baseline - Discharge Instructions Follow Up With: Russell Wan MD [Primary Care Provider] - - Diet and Activity Activity: increase activity as tolerated, resume usual activities as tolerated Diet: advance to your usual diet
[2017-08-25 15:22] VITALS: BP 110/69
--- NOTE | 2017-08-25 15:41 | Physician Discharge Referral ---
Home Health/Hosp Referral Info Transfer to: Home Health Provider in Charge Post Discharge: PCP - Diagnosis (1) Accidental drug ingestion Priority: Primary Status: Acute (2) Hypothyroid Priority: Secondary Status: Acute (3) Altered mental status Priority: Secondary Status: Acute (4) Confusion Priority: Secondary Status: Acute (5) Elevated TSH Priority: Secondary Status: Acute (6) H/O thyroid nodule Priority: Secondary Status: Acute (7) HTN (hypertension) Priority: Secondary Status: Acute (8) Dehydration Priority: Secondary Status: Acute (9) Hypokalemia Priority: Secondary Status: Acute (10) Hyponatremia Priority: Secondary Status: Acute - Respiratory Orders Smoking Cessation: Smoking cessation has been advised. For more information, call the [place] Tobacco Quit Line at 4-969-PQNWNOW. - Services Needed Following services are medically necessary services: Home Health Aide, Physical Therapy, Occupational Therapy - Transfer Medications Prescriptions: Levothyroxine [Synthroid] 75 mcg PO DAILY@30 30 Days #30 tablet Home Medications: Aspirin 81 mg PO DAILY 03/07/16 [History] Atenolol [Tenormin] 50 mg PO DAILY 03/07/16 [History] Omeprazole [PriLOSEC] 20 mg PO DAILY 03/07/16 [History] Amitriptyline [Elavil] 50 mg PO HS 08/24/17 [History] Ascorbic Acid [Vitamin C] 1,000 mg PO DAILY 08/24/17 [History] Cholecalciferol (Vitamin D3) [Vitamin D3] 1,000 unit PO DAILY 08/24/17 [History] Loratadine [Allergy Relief] 10 mg PO DAILY 08/24/17 [History] Vit/Iron Fumarate/FA [ Tablet] 1 tab PO DAILY 08/24/17 [History ] Topiramate 50 mg PO HS 08/24/17 [History] Levothyroxine [Synthroid] 75 mcg PO DAILY@0630 30 Days #30 tablet 08/25/17 [Rx] Allergies/Adverse Reactions: 3 Allergy/AdvReac Type Severity Reaction Status Date / Time No Known Allergies Allergy Verified 08/24/17 10:11 Certification: Further, I certify that my clinical findings support that this patient is homebound (i.e. absences from home require considerable and taxing effort and are for medical reasons or baptism services or infrequently or short duration when for other reasons) because: Homebound Reason: Patient requires assistance of a person or device to safely leave home Attestation: My signature below is to certify that this patient is under my care and that I, or nurse practitioner, or a physician's retail administrative assistant working with me, has a face-to -face encounter with this patient.
[2017-08-26 08:06] LABS: Estimated Average Glucose 111 mg/dl; Hemoglobin A1C 5.5 %
--- NOTE | 2017-08-27 06:50 | Electrocardiograph Report ---
[place] [facility] Date: 2017-08-24 Pat Name: Mauro Dickens Department: [id number] Room: 3B22 Gender: F Senior Billing Consultant: AM : 1950 Requested By: Daniel Martinez Order Number: [id number] Reading MD: Cliff Pierre Measurements Intervals [place] Rate: 71 P: 50 IN: 184 QRS: 19 QRSD: 102 T: 55 QT: 389 QTc: 411 Interpretive Statements SINUS RHYTHM Electronically Signed On 08-27-2017 6:49:08 EDT by Cliff Pierre
== END 2017-08-25 15:40 | disposition home or self-care (01) ==
LOC: EMEROO 10:09 → 3BNU 10:09
PROVIDERS: ADMIT Internal Medicine; ATTEND Internal Medicine